=== PATIENT | female | born 1950 | race Caucasian/White ===

== ENCOUNTER 2018-05-25 09:54 | Outpatient (REF) | payer MEDICARE, MEDICAID, SELFPAY ==
[2018-05-25 23:34] LABS: Anion Gap 10.2 mmol/L (3-11); BUN 27 mg/dL (7-18); CO2 27.8 mmol/L (21.0-32.0); CREATININE 1.36 mg/dL (0.55-1.02); Calcium 9.2 mg/dL (8.5-10.1); Chloride 102 mmol/L (98-107); Cholesterol 224 mg/dL (50-200); Estimated GFR 38.67 (mL/min/1.73m2); Glucose 102 mg/dL (70-100); HDL Cholesterol 58 mg/dL (40-60); LDL CHOLESTEROL 138 mg/dL (<100); Potassium 4.4 mmol/L (3.5-5.1); Sodium 140 mmol/L (136-145); Triglyceride 169 mg/dL (30-150)
== END 2018-05-25 10:14 ==
LOC: NCHCN 09:54
PROVIDERS: PCP Specialist/Technologist Athletic Trainer; Visit Provider Specialist/Technologist Athletic Trainer
DX: I10 Essential (primary) hypertension (principal); E78.5 Hyperlipidemia, unspecified
CPT/HCPCS: 80048; 80061; 83721

== ENCOUNTER 2020-07-21 10:48 | Outpatient (REF) | payer MEDICARE, MEDICAID, SELFPAY ==
[2020-07-21 21:17] LABS: ALT 31 U/L (14-59); AST 24 U/L (15-37); Alkaline Phosphatase 77 U/L (46-116); Anion Gap 7.7 mmol/L (3-11); BUN 28 mg/dL (7-18); Bilirubin, Total 0.6 mg/dL (0.2-1.0); CO2 27.3 mmol/L (21.0-32.0); CREATININE 1.35 mg/dL (0.55-1.02); Calcium 9.1 mg/dL (8.5-10.1); Chloride 104 mmol/L (98-107); Estimated GFR 38.77 (mL/min/1.73m2); Glucose 99 mg/dL (74-106); Potassium 4.4 mmol/L (3.5-5.1); Sodium 139 mmol/L (136-145); Total Protein 7.7 g/dL (6.4-8.2)
[2020-07-21 21:35] LABS: Calculated LDL 134 mg/dL (<100); Cholesterol 227 mg/dL (<200); HDL Cholesterol 65 mg/dL (40-60); Triglyceride 143 mg/dL (<150)
== END 2020-07-21 11:08 ==
LOC: NCHCN 10:48
PROVIDERS: PCP Specialist/Technologist Athletic Trainer; Visit Provider Nurse Practitioner Family
DX: I10 Essential (primary) hypertension (principal); E78.5 Hyperlipidemia, unspecified
CPT/HCPCS: 80053; 80061

== ENCOUNTER 2020-11-12 07:24 | Emergency (ER) | payer MEDICARE, SELFPAY ==
[2020-11-12] VITALS (17 sets, daily range): BP systolic 147–175; BP diastolic 69–140; PULSE 71–89; RESP 10–23; TEMP 36.4–36.5; O2SAT 95–99
--- NOTE | 2020-11-12 07:15 | RT.EKG_ITS ---
APPROVED REPORT Exam: Resting ECG Patient Location: E HR:78 bpm ECG Measurements Heart Rate 78 AXIS PA 193 P 47 QRSd 73 QRS 46 QT 394 T 42 QTc 447 Conclusion Sinus rhythm...normal P axis, V-rate 60- 99
--- NOTE | 2020-11-12 08:33 | ED.GENADUL_ITS ---
Discharge Plan Disposition Patient Disposition: HOME Condition: Stable Discharge Details Clinical Impression: Vertigo Primary Care Provider: Gilbert Dove ED Provider: Chris Walker Home Meds and New Rx's Prescriptions: New meclizine 25 mg tablet 25 mg PO BID PRN (Reason: dizziness) Qty: 30 RF: 0 Continued atorvastatin 20 mg Tablet 20 mg PO QHS RF: 0 lisinopril-hydrochlorothiazide 10-12.5 mg Tablet 1 tab PO DAILY RF: 0 Discharge Instructions Instructions: Vertigo (ED) Additional Instructions: Please contact your primary care physician to arrange follow-up. If symptoms persist, you should be seen for additional diagnostic testing. Return to the ER immediately if for any worsening or new concerning symptoms. Stand Alone Forms: Physical Therapy Referral Referrals: Gilbert Dove [Primary Care Provider] - Discharge Data Discharge Date/Time-TO BE ENTERED AT DEPARTURE: 11/12/20 10:52 Medical Decision Making 70-year-old female here with vertigo. Symptoms and exam consistent with peripheral process. Lianet maneuver performed. Patient given meclizine 25 mg. Patient does note she has not been drinking as much fluid as usual and feels a bit dehydrated. I will give IV fluid bolus. Patient is hypertensive. She has a history of hypertension and did not take her morning medication as prescribed today. I will give her hydrochlorothiazide and lisinopril as prescribed. Labs to assess for electrolyte abnormality and renal function reviewed HPI General Mode of arrival: EMS . Date/Time Provider Initiated Documentation: 11/12/20 07:32 . Limitations to Documentation: no limitations . Information obtained by: patient . HPI Narrative: 70-year-old with history of hypertension and hyperlipidemia, presents with chief complaint of dizziness. P atient describes the dizziness as vertigo. Symptoms started this morning. Symptoms moderate to severe. Symptoms positional, worse standing moving around and improved when lying down and standing still. Symptoms have persisted although not as severe now. Patient notes she had similar episode remotely. She does note some recent sinus congestion and sensation of ear fullness bilaterally. Patient denies associated headache, visual change, nausea or vomiting, numbness or weakness. Related Data Home Medications Medication Instructions Recorded Confirmed atorvastatin 20 mg PO QHS 11/12/20 11/12/20 lisinopril-hydrochlorothiazide 1 tab PO DAILY 11/12/20 11/12/20 meclizine 25 mg PO BID PRN #30 tab 11/12/20 Previous Rx's Medication Instructions Recorded meclizine 25 mg PO BID PRN #30 tab 11/12/20 Allergies Allergy/AdvReac Type Severity Reaction Status Date / Time shellfish derived Allergy Hives Unverified 11/12/20 07:31 clarithromycin [From Biaxin] AdvReac Intermediate Nausea Unverified 11/12/20 07:31 General Stated Complaint: Dizzy/Sync MAHENDRA: 3 Review of Systems All systems reviewed & are unremarkable except as noted in HPI and below Constitutional Constitutional: Denies fever(s) Cardiovascular Cardiovascular: Denies chest pain PFSH Medical History (Updated 11/12/20 @ 10:08 by Chris Walker MD) Hypertension Social History Smoking/Tobacco Use Status: Former Tobacco Use Smoking risk assessment performed?: Yes Alcohol Intake: never Drug use: Never Substance use type: does not use Do you feel safe at home: Yes Do you feel safe in your relationship?: Yes Exam Const General: cooperative and no acute distress HENMT Head: normocephalic and atraumatic Mouth: moist mucous membranes Eyes Conjunctivae: normal conjunctivae Sclera: normal sclerae EOM: EOM intact bilaterally and nystagmus Neck Neck: trachea midline and supple Resp Auscultation: clear to auscultation bilaterally, no rales, no rhonchi and no wheezes Cardio Rate: regular rate and not tachycardic Rhythm: regular rhythm GI Palpation: soft, not firm, no guarding, no masses, not rigid and nontender Skin General skin exam: no rashes or lesions noted Neuro General: patient alert, patient awake, patient oriented x3, tone normal and CN's II-XI intact bilaterally (Aside from nystagmus) Cranial Nerves: PERRL, EOM intact bilaterally and nystagmus horizontal fast component to the left Cognition: normal cognition Speech: speech normal Motor: muscle tone normal throughout and strength 5/5 throughout Sensory Exam: no sensory deficits noted Coordination: [id number] test normal, mpgy-br-[id number] test normal, Romberg test normal and rapid alternating movement UE normal (Normal) Other: [place]-Hallpike, symptoms when lying to the right side; hints exam negative Extrem General: no edema Psych Appearance: grossly normal Mental Status: mental status grossly normal Speech and Movement: speech and movement normal Course Vital Signs Vital signs: Vital Signs Temperature 36.5 C 11/12/20 07:27 Pulse 79 11/12/20 07:27 Respiratory Rate 18 11/12/20 07:27 Blood Pressure 165/77 H 11/12/20 07:27 Pulse Oximetry 97 11/12/20 07:27 Temperature 36.5 C 11/12/20 07:27 Temperature Source Temporal Artery Scan 11/12/20 07:27 Pulse 79 11/12/20 07:27 Respiratory Rate 18 11/12/20 07:32 Respiratory Effort Non-Labored 11/12/20 07:32 Respiratory Depth Normal 11/12/20 07:32 Respiratory Pattern Normal 11/12/20 07:32 Blood Pressure 165/77 H 11/12/20 07:27 Blood Pressure Position Sitting 11/12/20 07:27 Pulse Oximetry 97 11/12/20 07:27 Oxygen Delivery Method Room Air 11/12/20 07:27 Oxygen Flow Rate 0 11/12/20 07:27 Pain Level 0 11/12/20 07:27
[2020-11-12] MEDS: hydroCHLOROthiazide 25 MG TAB 12.5 MG PO (09:05)
[2020-11-12] MEDS: Lisinopril 10 MG TAB PO (09:05)
[2020-11-12] MEDS: Lactated Ringers 500 ML 1000 ML IV (09:05)
[2020-11-12] MEDS: Meclizine 25 MG TAB PO (09:07)
[2020-11-12 09:09] LABS: Abs Immature Grans 0.03 10^3/uL (0.0-0.06); Absolute Basophil Count 0.04 10^3/uL (0.0-0.2); Absolute Eosinophil Count 0.06 10^3/uL (0.0-0.7); Absolute Lymphocyte Count 1.63 10^3/uL (1.2-3.4); Absolute Monocyte Count 0.58 10^3/uL (0.1-0.8); Absolute Neutrophil Count 6.73 10^3/uL (1.2-6.7); Basophils % 0.4; Eosinophils % 0.7; HCT 41.5 % (36.0-46.0); HGB 14.1 g/dL (11.2-15.7); Immature Grans % 0.3; MCH 30.5 pg (27.0-33.0); MCV 89.8 fL (80-95); MPV 9.2 fL (8.0-11.0); Monocytes % 6.4; Neutrophils % 74.2; Nucleated RBC 0 %; Platelet Count 247 10^3/uL (130-400); RBC 4.62 10^6/uL (3.93-5.22); RDW 12.7 % (11.7-14.6); RDW-SD 42.1 fL; WBC 9.07 10^3/uL (4.4-10.8)
[2020-11-12 09:25] LABS: ALT 35 U/L (14-59); AST 22 U/L (15-37); Albumin 3.7 g/dL (3.4-5.0); Alkaline Phosphatase 97 U/L (46-116); BUN 21 mg/dL (7-18); Bilirubin, Total 0.7 mg/dL (0.2-1.0); CREATININE 1.3 mg/dL (0.55-1.02); Calcium 9.6 mg/dL (8.5-10.1); Chloride 101 mmol/L (98-107); Estimated GFR 40.49 (mL/min/1.73m2); Glucose 113 mg/dL (74-106); Magnesium 1.8 mg/dL (1.8-2.4); Potassium 3.5 mmol/L (3.5-5.1); Sodium 138 mmol/L (136-145); Total Protein 7.9 g/dL (6.4-8.2)
[2020-11-12 09:28] LABS: Troponin I < 0.05 ng/mL (<0.06)
== END 2020-11-12 10:52 | disposition home or self-care (01) ==
PROVIDERS: Emergency Provider Student in an Organized Health Care Education/Training Program; PCP Specialist/Technologist Athletic Trainer
DX: R42 Dizziness and giddiness (principal); E86.0 Dehydration
CPT/HCPCS: 36415; 80053; 93005; 95992; 96360; 99284; 83735; 84484; 85025; 93010

== ENCOUNTER 2020-11-24 15:20 | Outpatient (REF) | payer MEDICARE, SELFPAY ==
[2020-11-25 15:52] LABS: HSV 1 DNA Result Negative (Negative); HSV 2 DNA Result Negative (Negative); Varicella Zoster DNA Result Positive (Negative)
== END 2020-11-24 15:21 | disposition home or self-care (01) ==
LOC: NCHCN 15:20
PROVIDERS: PCP Nurse Practitioner Family; Visit Provider Nurse Practitioner Family
DX: R21 Rash and other nonspecific skin eruption (principal); Z11.59 Encounter for screening for other viral diseases
CPT/HCPCS: 87529; 87798

== ENCOUNTER 2021-01-03 11:22 | Outpatient (REF) | payer MEDICARE, SELFPAY ==
[2021-01-03 15:53] LABS: Calculated LDL 101 mg/dL (<100); Cholesterol 184 mg/dL (<200); HDL Cholesterol 57 mg/dL (40-60); Triglyceride 134 mg/dL (<150)
== END 2021-01-03 11:23 | disposition home or self-care (01) ==
LOC: NCHCN 11:22
PROVIDERS: PCP Nurse Practitioner Family; Visit Provider Nurse Practitioner Family
DX: E78.5 Hyperlipidemia, unspecified (principal)
CPT/HCPCS: 80061

== ENCOUNTER 2021-04-06 16:28 | Outpatient (REF) | payer MEDICARE, SELFPAY ==
[2021-04-06 19:40] LABS: Anion Gap 8.9 mmol/L (3-11); BUN 34 mg/dL (7-18); CO2 27.1 mmol/L (21.0-32.0); CREATININE 1.5 mg/dL (0.55-1.02); Calcium 9.5 mg/dL (8.5-10.1); Chloride 105 mmol/L (98-107); Estimated GFR 34.23 (mL/min/1.73m2); Glucose 109 mg/dL (74-106); Potassium 3.9 mmol/L (3.5-5.1); Sodium 141 mmol/L (136-145)
== END 2021-04-06 16:29 | disposition home or self-care (01) ==
LOC: NCHCN 16:28
PROVIDERS: PCP Nurse Practitioner Family; Visit Provider Nurse Practitioner Family
DX: Z00.00 Encounter for general adult medical examination without abnormal findings (principal); I10 Essential (primary) hypertension
CPT/HCPCS: 80048

== ENCOUNTER 2021-04-23 06:27 | Day surgery (SDC) | payer MEDICARE, SELFPAY ==
[2021-04-23 06:37] VITALS: BP 171/71; PULSE 77; RESP 16; TEMP 36.6; O2SAT 99
[2021-04-23] MEDS: Tropicam./Phenyleph. (1/2.5%) 5 ML BTL OD ×3 (06:47→06:57)
--- NOTE | 2021-04-23 07:03 | W.ANESPRE ---
General Info Date of Service Date Performed: 04/23/21 Height: 5 ft 1 in Weight: 67.5 kg Body Mass Index (BMI): 28.0 Surgical Procedure: Operation Date: 04/23/21 07:40 Proposed Procedures Side Surgeon p Cataract Extraction with IOL Implant Right Manpreet Bowles MD Meds Allergies and Home Medications Allergies Allergy/AdvReac Type Severity Reaction Status Date / Time shellfish derived Allergy Severe Hives Unverified 04/19/21 13:46 clarithromycin [From Biaxin] AdvReac Intermediate Nausea Unverified 04/19/21 13:46 Home Medication Medication Instructions Recorded atorvastatin 20 mg PO QHS 11/12/20 amlodipine 2.5 mg PO DAILY 04/19/21 lisinopril 20 mg PO DAILY 04/19/21 Current Visit Medications: Current Medications Generic Name Dose Route Start Last Admin Trade Name Freq PRN Reason Stop Dose Admin Acetaminophen 1,000 mg 04/23/21 06:00 Acetaminophen 500 Mg Tab PO Q4H PRN PRN Miscellaneous Medication 0 ml 04/23/21 06:00 Prednisolone 1%, Moxifloxacin 0.5%, Nepafenac 0.1% 5ml Btl OD DIRECTED NILDA Miscellaneous Medication 0 ml 04/23/21 06:00 04/23/21 06:57 Tropicam./Phenyleph. (1/2.5%) 5 Ml Btl OD 1 drp DIRECTED NILDA Administration Tetracaine HCl 0 ml 04/23/21 06:00 Tetracaine 0.5% 4 Ml Btl OD DIRECTED NILDA PFSH Active Problems Active Problems: Problem Status Onset Code Posterior subcapsular age-related cataract, right eye H25.041 Nuclear sclerotic cataract of right eye H25.11 Vertigo R42 Medical History Medical History HLD (hyperlipidemia) Hypertension Tobacco Smoking/Tobacco Use Status: Former Tobacco Use Alcohol Alcohol Intake: never Substance Use Substance use: Never Substance use type: does not use Vital Signs and Lab Results Vital Signs Most Recent Vital Signs in EMR: Most Recent Vital Signs Temp Pulse Resp BP Pulse Ox 36.6 C 77 16 171/71 H 99 04/23/21 06:37 04/23/21 06:37 04/23/21 06:37 04/23/21 06:37 04/23/21 06:37 Lab Results Blood Type / Crossmatch: No Data to Display Complete Blood Count: No Data to Display Complete Metabolic Panel: Sodium Level 141 mmol/L (136-145) 04/06/21 13:25 04/06/21 Potassium Level 3.9 mmol/L (3.5-5.1) 04/06/21 13:25 04/06/21 Chloride Level 105 mmol/L (98-107) 04/06/21 13:25 04/06/21 Carbon Dioxide Level 27.1 mmol/L (21.0-32.0) 04/06/21 13:25 04/06/21 Blood Urea Nitrogen 34 mg/dL (7-18) H 04/06/21 13:25 04/06/21 Creatinine 1.5 mg/dL (0.55-1.02) H 04/06/21 13:25 04/06/21 Estimated GFR/1.73 m2 34.23 (mL/min/1.73m2) 04/06/21 13:25 04/06/21 Calcium Level 9.5 mg/dL (8.5-10.1) 04/06/21 13:25 04/06/21 Glucose Level 109 mg/dL (74-106) H 04/06/21 13:25 04/06/21 Liver Function Panel: No Data to Display Coagulation Panel: No Data to Display Cardiac Panel: No Data to Display Arterial Blood Gas: No Data to Display Venous Blood Gas: No Data to Display Pancreas Panel: No Data to Display Thyroid Panel: No Data to Display Infectious Disease: No Data to Display Blood Cultures: No Data to Display Toxicology Panel: No Data to Display Imaging and Studies Imaging and Studies EKG Summary: 10/2020: Conclusion Sinus rhythm...normal P axis, V-rate 60- 99 I have reviewed and I agree with the emergency room physician's ECG interpretation. Anesthesia Assessment and Plan Anesthesia History Personal History: No History of Anesthesia Complications Family History: No Family History of Anesthesia Complications Exercise Tolerance Exercise Tolerance: Metabolic Equivalents>4 Pertinent Negatives Pertinent Negatives: No Symptoms of GERD, No Major Cardiovascular Symptoms or Complaints and No Major Pulmonary Symptoms or Complaints Cardiac & Pulmonary Exam Cardiac Exam: Heart Murmur Present Pulmonary Exam: Clear Bilateral Breath Sounds Airway Exam Known Difficult Airway: No Mallampati Class: 1 Mouth Opening: Normal (> 3cm) Thyromental Distance: Greater than 3 cm Neck Range of Motion: Full ROM Neck Circumference: Normal Teeth Condition: Removable Dentures/Plates Upper ASA Classification ASA Score: ASA 2 Emergency Case?: No NPO Status NPO Status: NPO Clears >2 hours, Solids >8 hours Anesthesia Plan Resuscitation Status: Full Code Anesthesia Technique: MAC Anesthesia Airway Planned: Natural Airway Monitors Used: Standard Monitors
[2021-04-23 07:06] VITALS: BMI 28.0
[2021-04-23] MEDS: Lidocaine 2% Jelly 6 ML SYR (07:23)
[2021-04-23] MEDS: Povidone-Iodine Ophth 30 ML BTL (07:23)
[2021-04-23] MEDS: Tetracaine 0.5% 4 ML BTL OD (07:23)
[2021-04-23] MEDS: Trypan Blue 0.06% 0.5 ML SYR (07:31)
[2021-04-23] MEDS: Lidocaine 1% Pres-Free 5 ML VIAL (07:31)
[2021-04-23] MEDS: Balanced Salt Soln.-PLUS 500 ML BAG (07:36)
[2021-04-23] MEDS: Duovisc Viscoelastic System EACH 1 EACH (07:37)
--- NOTE | 2021-04-23 08:03 | W.PM.DSUDISC ---
Discharge Plan Disposition Patient Disposition: HOME Discharge Details Attending Provider: Manpreet Bowles Primary Care Provider: Sheela Taylor Home Meds and New Rx's Prescriptions: No Action atorvastatin 20 mg Tablet 20 mg PO QHS RF: 0 lisinopril 20 mg tablet 20 mg PO DAILY RF: 0 amlodipine 2.5 mg Tablet 2.5 mg PO DAILY RF: 0 Discharge Instructions Stand Alone Forms: Post-op Topical Cataract, Shirin Crenshaw (DSU) Discharge Orders Discharge Orders: Discharge Order (Routine); Ordered 04/23/21 Ordered By: Manpreet Bowles DS: Diagnosis Discharge Diagnosis (1) Posterior subcapsular age-related cataract, right eye: Status: Resolved (2) Nuclear sclerotic cataract of right eye: Status: Resolved
--- NOTE | 2021-04-23 08:04 | ROE_ITS ---
Date of service: 04/23/21 Time of Service: 08:04 Operative Note Operative Note DATE OF PROCEDURE: 04/23/21 PRE-OP DIAGNOSIS: Dense posterior subcapsular/cortical cataract, right eye Nuclear cataract, right eye POST-OP DIAGNOSIS: same PROCEDURE: Cataract extraction using phacoemulsification with intraocular lens implantation, right eye, using capsular staining with Vision Blue SURGEON: Manpreet Bowles ANESTHESIA TYPE: Local By Surgeon and MAC Refer to Anesthesia Record PATHOLOGY: none sent COMPLICATIONS: None Patient was transported to: same day Patient's condition: stable Implants: [employer]key / [employer] Tecnis [id number] Indications: Progressive visual loss due to cataract, right eye Procedure Description: CATARACT SURGERY OPERATIVE REPORT PREOPERATIVE DIAGNOSIS: 1. Dense posterior subcapsular/posterior polar cataract, right eye 2. Nuclear cataract, right eye 3. Poor red reflex secondary to #1 POSTOPERATIVE DIAGNOSIS: Same OPERATION: 1. Cataract extraction using phacoemulsification with posterior chamber intraocular lens implant, right eye. 2. Capsular staining with Vision Blue IOL: IOL [employer]/Model: Rickey & Rickey / [employer] Tecnis [id number] IOL Power: + 26.0 diopters IOL Serial Number: [id number] Optic Diameter: 6.0mm Haptic/Overall Diameter: 13.0mm PHACO INFO: Caleb RIB Softwareurion Vision System with OZil and Active [employer]uidics Cumulative Dispersed Energy (CDE): 11.07 seconds SURGEON: Manpreet Bowles MD, KATHERINE ANESTHESIA: Monitored Anesthesia Care (MAC), with local sub-tenon's anesthetic infiltration COMPLICATIONS: None SPECIMENS: None INDICATIONS FOR PROCEDURE: The patient is a 71-year-old lady who presented with complaints of progressive decreased vision in her right eye, fairly rapidly. She was noted to have a dense posterior subcapsular/posterior polar cataract of the right eye. The option of cataract surgery was offered to the patient and she wished to proceed. PROCEDURE: The correct surgical eye was identified and marked as the right eye and the pupil was dilated in the preoperative area using mydriatics and cycloplegics. The dilated pupil size was 7.0 mm. She elected to proceed without oral sedation. The patient was brought to the operating room where cardiopulmonary monitoring was instituted and surgical time-out was performed, confirming the correct operative eye and IOL power. Topical anesthesia was administered and ophthalmic povidone-iodine 5% was instilled into the conjunctival fornices. Lidocaine gel was applied to the cornea and the chandrakant-ocular area was prepped with Betadine 10% solution and draped in the usual sterile fashion for intraocular surgery, including an aperture drape. A Tegaderm transparent film dressing was cut in half and used to cover the lashes and lid margins. Care was taken to sequester the lashes and lid margins under the Tegaderm dressing. A lid speculum was placed between the lids of the operative eye and the Robert-Raymon operating microscope was maneuvered into position. Beny scissors were then used to make a conjunctival buttonhole approximately 6mm posterior to the limbus in the inferonasal quadrant. Blunt dissection was carried out to expose bare sclera, and a blunt-tipped sub-tenon?s anesthesia cannula was introduced and passed posteriorly along the globe where non- preserved plain lidocaine was injected into posterior sub-Tenon?s space. A sideport knife was used to make a paracentesis port inferotemporally. Intraocular phenylephrine/lidocaine was injected into the anterior chamber. Air was injected into the anterior chamber, followed by Vision Blue, which was painted over the anterior capsule and then irrigated out with BSS. The anterior chamber was filled with viscoelastic. A 2.4mm keratome knife was used to create a half-thickness groove at the limbus and then to construct a three-plane near-c lear corneal tunnel extending 2.0mm into clear cornea superiortemporally. A flap was raised on the anterior capsule and capsulorhexis forceps were used to complete a continuous curvilinear capsulorhexis of 5.0 mm. Balanced salt solution was then used to perform nuclear hydrodelineation only. . The lens nucleus was then disassembled and removed within the capsular bag and iris plane using phacoemulsification. Dispersive viscoelastic was injected into the anterior chamber prior to removing the phaco handpiece. Viscodissection of the epinucleus and cortex was then undertaken. The epinucleu s and cortex was then carefully peeled from the capsule. There was significant residual posterior subcapsular plaque diffusely on the posterior capsule. The posterior capsule appeared to be intact, but was not aggressively polished. There was a significant amount of residual posterior subcapsular plaque remaining, which will be left in place. The capsular bag was then inflated and the anterior chamber deepened with viscoelastic. The lens implant described above was inserted into the capsular bag using the [employer] [place] Injector. A Kuglen hook was used to dial the IOL into position. Residual viscoelastic was then removed first from posterior to the IOL, then from the anterior chamber using the I/A handpiece. The lens implant was noted to center nicely within the capsular bag. The incisions were stromally hydrated, and the anterior chamber was reformed using BSS. Then 0.5cc of moxifloxacin 1.0mg/ml were injected into the capsular bag and anterior chamber. The incisions were checked with a Weck spear and found to be secure. Several drops of ophthalmic povidone-iodine 5% were then applied to the eye followed by two drops of Imprimis combination prednisolone/moxifloxacin/nepafenac solution. The drapes were removed and a clear plastic protective eye shield was placed over the eye. The patient was then returned to Same Day Surgery in stable condition.
[2021-04-23 08:09] VITALS: BP 171/82; PULSE 69; RESP 16; TEMP 36.3; O2SAT 98
--- NOTE | 2021-04-23 08:18 | W.ANESPOSTOP ---
Postoperative Evaluation Date, Time and Location Date Performed: 04/23/21 Time Performed: 08:10 Patient Location: Day Surgery Unit Vital Signs Most Recent Imported Vital Signs: Most Recent Vital Signs Temp Pulse Resp BP Pulse Ox 36.3 C L 69 16 171/82 H 98 04/23/21 08:09 04/23/21 08:09 04/23/21 08:09 04/23/21 08:09 04/23/21 08:09 Pain Score Most Recent Pain Score: Most Recent Pain Score Pain Level 0 04/23/21 08:09 Assessment Mental Status: Awake (Alert & Oriented to Patient Baseline) Airway and Respiratory Function: Patent airway with normal (patient baseline) respiratory exam Cardiovascular Function: Hemodynamically Stable Hydration Status: Adequately Hydrated Nausea & Vomiting: No Nausea or Vomiting Pain: Pt. Denies Any Pain Peripheral Nerve Block: Patient did not receive a nerve block
== END 2021-04-23 08:24 | disposition home or self-care (01) ==
PROVIDERS: PCP Nurse Practitioner Family; Visit Provider Ophthalmology
PROC: (CPT 66984; principal; 2021-04-23 07:30)
DX: H25.041 Posterior subcapsular polar age-related cataract, right eye (principal)
CPT/HCPCS: 66984; V2632

== ENCOUNTER 2021-04-30 08:57 | Outpatient (REF) | payer MEDICARE, SELFPAY ==
[2021-04-30 15:51] LABS: Anion Gap 11.2 mmol/L (3-11); BUN 20 mg/dL (7-18); CO2 25.8 mmol/L (21.0-32.0); CREATININE 1.1 mg/dL (0.55-1.02); Calcium 9.1 mg/dL (8.5-10.1); Chloride 107 mmol/L (98-107); Estimated GFR 48.96 (mL/min/1.73m2); Glucose 99 mg/dL (74-106); Potassium 4.2 mmol/L (3.5-5.1); Sodium 144 mmol/L (136-145)
== END 2021-04-30 08:58 | disposition home or self-care (01) ==
LOC: NCHCN 08:57
PROVIDERS: PCP Nurse Practitioner Family; Visit Provider Nurse Practitioner Family
DX: I10 Essential (primary) hypertension (principal); R94.4 Abnormal results of kidney function studies
CPT/HCPCS: 80048

== ENCOUNTER 2021-05-02 02:32 | Outpatient (CLI) | payer MEDICARE, SELFPAY ==
[2021-05-02 10:48] LABS: Source Nasal/Nares
[2021-05-02 13:01] LABS: COVID-19 PCR Negative (Negative)
== END 2021-05-02 02:33 | disposition home or self-care (01) ==
PROVIDERS: PCP Nurse Practitioner Family; Visit Provider Ophthalmology
DX: Z20.822 Contact with and (suspected) exposure to COVID-19 (principal); Z01.818 Encounter for other preprocedural examination
CPT/HCPCS: 87635

== ENCOUNTER 2021-05-04 08:56 | Day surgery (SDC) | payer MEDICARE, SELFPAY ==
[2021-05-04 09:13] VITALS: BP 182/81; PULSE 74; RESP 16; TEMP 36.3; O2SAT 98
[2021-05-04] MEDS: Tropicam./Phenyleph. (1/2.5%) 5 ML BTL OS ×3 (09:18→09:35)
--- NOTE | 2021-05-04 10:05 | W.ANESPRE ---
General Info Date of Service Date Performed: 05/04/21 Height: 5 ft 1 in Weight: 67.5 kg Body Mass Index (BMI): 28.0 Surgical Procedure: Operation Date: 05/04/21 11:40 Proposed Procedures Side Surgeon p Cataract Extraction with IOL Implant Left Manpreet Bowles MD Meds Allergies and Home Medications Allergies Allergy/AdvReac Type Severity Reaction Status Date / Time shellfish derived Allergy Severe Hives Unverified 05/04/21 09:19 clarithromycin [From Biaxin] AdvReac Intermediate Nausea Unverified 05/04/21 09:19 Home Medication Medication Instructions Recorded atorvastatin 20 mg PO QHS 11/12/20 amlodipine 5 mg PO DAILY 04/19/21 lisinopril 20 mg PO DAILY 04/19/21 Current Visit Medications: Current Medications Generic Name Dose Route Start Last Admin Trade Name Freq PRN Reason Stop Dose Admin Acetaminophen 1,000 mg 05/04/21 06:00 Acetaminophen 500 Mg Tab PO Q4H PRN PRN Miscellaneous Medication 0 ml 05/04/21 06:00 Prednisolone 1%, Moxifloxacin 0.5%, Nepafenac 0.1% 5ml Btl OS DIRECTED NILDA Miscellaneous Medication 0 ml 05/04/21 06:00 05/04/21 09:35 Tropicam./Phenyleph. (1/2.5%) 5 Ml Btl OS 1 drp DIRECTED NILDA Administration Tetracaine HCl 0 ml 05/04/21 06:00 Tetracaine 0.5% 4 Ml Btl OS DIRECTED NILDA PFSH Active Problems Active Problems: Problem Status Onset Code Vertigo R42 Nuclear sclerotic cataract of right eye H25.11 Posterior subcapsular age-related cataract, right eye H25.041 Medical History Medical History HLD (hyperlipidemia) Hypertension Surgical History Surgical History (Updated 05/04/21 @ 09:19 by Lashaun Nunn) Hx of cataract surgery Tobacco Smoking/Tobacco Use Status: Former Tobacco Use Alcohol Alcohol Intake: never Substance Use Substance use: Never Substance use type: does not use Vital Signs and Lab Results Vital Signs Most Recent Vital Signs in EMR: Most Recent Vital Signs Temp Pulse Resp BP Pulse Ox 36.3 C L 74 16 182/81 H 98 05/04/21 09:13 05/04/21 09:13 05/04/21 09:13 05/04/21 09:13 05/04/21 09:13 Lab Results Blood Type / Crossmatch: No Data to Display Complete Blood Count: No Data to Display Complete Metabolic Panel: Sodium Level 144 mmol/L (136-145) 04/30/21 08:30 04/30/21 Potassium Level 4.2 mmol/L (3.5-5.1) 04/30/21 08:30 04/30/21 Chloride Level 107 mmol/L (98-107) 04/30/21 08:30 04/30/21 Carbon Dioxide Level 25.8 mmol/L (21.0-32.0) 04/30/21 08:30 04/30/21 Blood Urea Nitrogen 20 mg/dL (7-18) H 04/30/21 08:30 04/30/21 Creatinine 1.1 mg/dL (0.55-1.02) H 04/30/21 08:30 04/30/21 Estimated GFR/1.73 m2 48.96 (mL/min/1.73m2) 04/30/21 08:30 04/30/21 Calcium Level 9.1 mg/dL (8.5-10.1) 04/30/21 08:30 04/30/21 Glucose Level 99 mg/dL (74-106) 04/30/21 08:30 04/30/21 Liver Function Panel: No Data to Display Coagulation Panel: No Data to Display Cardiac Panel: No Data to Display Arterial Blood Gas: No Data to Display Venous Blood Gas: No Data to Display Pancreas Panel: No Data to Display Thyroid Panel: No Data to Display Infectious Disease: Coronavirus (COVID-19)(PCR) Negative (Negative) 05/02/21 09:18 05/02/21 Coronavirus 2019 Source Nasal/Nares 05/02/21 09:18 05/02/21 Blood Cultures: No Data to Display Toxicology Panel: No Data to Display Imaging and Studies Imaging and Studies EKG Summary: 10/2020: Conclusion Sinus rhythm...normal P axis, V-rate 60- 99 I have reviewed and I agree with the emergency room physician's ECG interpretation. Anesthesia Assessment and Plan Anesthesia History Personal History: No History of Anesthesia Complications Family History: No Family History of Anesthesia Complications Exercise Tolerance Exercise Tolerance: Metabolic Equivalents>4 Pertinent Negatives Pertinent Negatives: No Symptoms of GERD, No Major Cardiovascular Symptoms or Complaints, No Major Pulmonary Symptoms or Complaints and No History of CVA/TIA Cardiac & Pulmonary Exam Cardiac Exam: Normal S1/S2 Heart Sounds Pulmonary Exam: Clear Bilateral Breath Sounds Airway Exam Known Difficult Airway: No Mallampati Class: 1 Mouth Opening: Normal (> 3cm) Thyromental Distance: Greater than 3 cm Neck Range of Motion: Full ROM Neck Circumference: Normal Teeth Condition: Removable Dentures/Plates Upper ASA Classification ASA Score: ASA 2 Emergency Case?: No NPO Status NPO Status: NPO Clears >2 hours, Solids >8 hours Anesthesia Plan Resuscitation Status: Full Code Anesthesia Technique: MAC Anesthesia Airway Planned: Natural Airway Monitors Used: Standard Monitors
[2021-05-04 10:07] VITALS: BMI 28.0
[2021-05-04] MEDS: Tetracaine 0.5% 4 ML BTL OS (10:17)
[2021-05-04] MEDS: Duovisc Viscoelastic System EACH 1 EACH (10:21)
[2021-05-04] MEDS: Balanced Salt Soln.-PLUS 500 ML BAG (10:21)
[2021-05-04] MEDS: Lidocaine 2% Jelly 6 ML SYR (10:21)
[2021-05-04] MEDS: Lidocaine 1% Pres-Free 5 ML VIAL (10:21)
[2021-05-04] MEDS: Povidone-Iodine Ophth 30 ML BTL (10:24)
[2021-05-04 10:45] VITALS: BP 164/84; PULSE 75; RESP 18; TEMP 36.6; O2SAT 99
--- NOTE | 2021-05-04 10:49 | W.PM.OP ---
Date of service: 05/04/21 Time of Service: 10:51 Operative Note Operative Note DATE OF PROCEDURE: 05/04/21 PRE-OP DIAGNOSIS: Nuclear/posterior subcapsular cataract, left eye POST-OP DIAGNOSIS: same PROCEDURE: Cataract extraction using phacoemulsification with intraocular lens implant, left eye SURGEON: Manpreet Bowles ANESTHESIA TYPE: Local By Surgeon and MAC Refer to Anesthesia Record PATHOLOGY: none sent COMPLICATIONS: None Patient was transported to: same day Patient's condition: stable Implants: Rickey and Rickey / [employer] Tecnis [id number] Indications: Progressive decreased vision due to cataract, left eye, with poor red reflex Procedure Description: CATARACT SURGERY OPERATIVE REPORT PREOPERATIVE DIAGNOSIS: 1. Nuclear/posterior subcapsular cataract, left eye POSTOPERATIVE DIAGNOSIS: Same OPERATION: 1. Cataract extraction using phacoemulsification with posterior chamber intraocular lens implant, left eye. IOL: IOL Stock Drier Tender/Model: Rickey & Rickey / KIA Tecnis [id number] IOL Power: + 26.0 diopters IOL Serial Number: [id number] Optic Diameter: 6.0 mm Haptic/Overall Diameter: 13.0 mm PHACO INFO: Caleb Talentologyurion Vision System with OZil and Active Fluidics Cumulative Dispersed Energy (CDE): 4.87 seconds SURGEON: Manpreet Bowles MD, KATHERINE ANESTHESIA: Monitored A [facility] (MAC), with local sub-tenon's anesthetic infiltration COMPLICATIONS: None SPECIMENS: None INDICATIONS FOR PROCEDURE: The patient is a 71-year-old lady with history of dense posterior subcapsular/polar cataract of the right eye, and has undergone cataract surgery 2 weeks ago to resolve this. Postoperatively she has significant residual posterior subcapsular plaque, which will be lasered at a later date. She now presents for cataract surgery of the left eye with a less dense posterior subcapsular cataract. PROCEDURE: The correct surgical eye was identified and marked as the left eye and the pupil was dilated in the preoperative area using mydriatics and cycloplegics. The dilated pupil size was 7.0 mm. She elected to proceed without oral sedation. The patient was brought to the operating room where cardiopulmonary monitoring was instituted and surgical time-out was performed, confirming the correct operative eye and IOL power. Topical anesthesia was administered and ophthalmic povidone-iodine 5% was instilled into the conjunctival fornices. Lidocaine gel was applied to the cornea and the chandrakant-ocular area was prepped with Betadine 10% solution and draped in the usual sterile fashion for intraocular surgery, including an aperture drape. A Tegaderm transparent film dressing was cut in half and used to cover the lashes and lid margins. Care was taken to sequester the lashes and lid margins under the Tegaderm dressing. A lid speculum was placed between the lids of the operative eye and the Robert-Raymon operating microscope was maneuvered into position. Beny scissors were then used to make a conjunctival buttonhole approximately 6mm posterior to the limbus in the inferonasal quadrant. Blunt dissection was carried out to expose bare sclera, and a blunt-tipped sub-tenon?s anesthesia cannula was introduced and passed posteriorly along the globe where non-preserved plain lidocaine was injected into posterior sub-Tenon?s space. A sideport knife was used to make a paracentesis port superiorly/superiortemporally. Intraocular phenylephrine/lidocaine was injected int the anterior chamber.. The anterior chamber was filled with viscoelastic. A 2.4mm keratome knife was used to create a half-thickness groove at the limbus and then to construct a three-plane near-clear corneal tunnel extending 2.0mm into clear cornea at the 3:00 position. A flap was raised on the anterior capsule and capsulorhexis forceps were used to complete a continuous curvilinear capsulorhexis of 5.5 mm. Balanced salt solution was then used to perform cortical cleaving hydrodissection and nuclear hydrodelineation until the lens could be freely rotated within the capsular bag. The lens nucleus was then disassembled and removed within the capsular bag and iris plane using phacoemulsification. Residual cortical material was removed using the 45-degree angled silicone I/A tip with 0.3mm port. The posterior capsule was carefully polished to remove as much residual lens epithelial cells as safely possible. There was a moderate amount of posterior subcapsular plaque which could not be safely removed. In addition, given the questionable posterior polar nature of the cataract, aggressive polishing was not recommended. The capsular bag was then inflated and the anterior chamber deepened with viscoelastic. The lens implant described above was inserted into the capsular bag using the KIA [place] Injector. A Kuglen hook was used to dial the IOL into position. Residual viscoelastic was then removed first from posterior to the IOL, then from the anterior chamber using the I/A handpiece. The lens implant was noted to center nicely within the capsular bag. The incisions were stromally hydrated, and the anterior chamber was reformed using BSS. Then 0.5cc of moxifloxacin 1.0mg/ml were injected into the capsular bag and anterior chamber. The incisions were checked with a Weck spear and found to be secure. Several drops of ophthalmic povidone-iodine 5% were then applied to the eye followed by two drops of Imprimis combination prednisolone/moxifloxacin/nepafenac solution. The drapes were removed and a clear plastic protective eye shield was placed over the eye. The patient was then returned to Same Day Surgery in stable condition.
--- NOTE | 2021-05-04 10:49 | W.PM.DSUDISC ---
Discharge Plan Disposition Patient Disposition: HOME Condition: Good Discharge Details Attending Provider: Manpreet Bowles Primary Care Provider: Sheela Taylor Home Meds and New Rx's Prescriptions: No Action atorvastatin 20 mg Tablet 20 mg PO QHS RF: 0 lisinopril 20 mg tablet 20 mg PO DAILY RF: 0 amlodipine 2.5 mg Tablet 5 mg PO DAILY RF: 0 Discharge Instructions Stand Alone Forms: Post-op Topical Cataract, Shirin Crenshaw (DSU) Discharge Orders Discharge Orders: Discharge Order (Routine); Ordered 05/04/21 Ordered By: Manpreet Bowles DS: Diagnosis Discharge Diagnosis (1) Nuclear sclerotic cataract of left eye: Status: Resolved (2) Posterior subcapsular age-related cataract of left eye: Status: Resolved
--- NOTE | 2021-05-04 10:49 | W.ANESPOSTOP ---
Postoperative Evaluation Date, Time and Location Date Performed: 05/04/21 Time Performed: 10:49 Patient Location: Day Surgery Unit Vital Signs Most Recent Imported Vital Signs: Most Recent Vital Signs Temp Pulse Resp BP Pulse Ox 36.3 C L 74 16 182/81 H 98 05/04/21 09:13 05/04/21 09:13 05/04/21 09:13 05/04/21 09:13 05/04/21 09:13 Most Recent Manually Entered Vital Signs: Adult Blood Pressure: 164/84 Heart Rate: 75 Respirations: 18 Oxygen Saturation (%): 99 Temperature (C): 36.6 C Pain Score (0-10 Scale): 0 Pain Score Most Recent Pain Score: Most Recent Pain Score Pain Level 0 05/04/21 09:13 Assessment Mental Status: Awake (Alert & Oriented to Patient Baseline) Airway and Respiratory Function: Patent airway with normal (patient baseline) respiratory exam Cardiovascular Function: Hemodynamically Stable Hydration Status: Adequately Hydrated Nausea & Vomiting: No Nausea or Vomiting Pain: Pt. Denies Any Pain Peripheral Nerve Block: Patient did not receive a nerve block
[2021-05-04 10:50] VITALS: BP 164/84; PULSE 75; RESP 18; TEMPC 36.6; O2SAT 99
== END 2021-05-04 11:08 | disposition home or self-care (01) ==
PROVIDERS: PCP Nurse Practitioner Family; Visit Provider Ophthalmology
PROC: (CPT 66984; principal; 2021-05-04 11:30)
DX: H25.042 Posterior subcapsular polar age-related cataract, left eye (principal); I10 Essential (primary) hypertension; E78.5 Hyperlipidemia, unspecified
CPT/HCPCS: 66984; V2632

== ENCOUNTER 2021-08-21 15:22 | Outpatient (REF) | payer MEDICARE, SELFPAY ==
[2021-08-21 21:05] LABS: Bacteria Few HPF (Negative); C & S Indicated? C&S Done As Ordered; Crystals Negative HPF (Negative); Epithelial Cells Many HPF (Negative); Mucus Negative (Negative); RBC 0-2 HPF (0-2); WBC >50 HPF (0-5)
== END 2021-08-21 15:23 | disposition home or self-care (01) ==
LOC: NCHCN 15:22
PROVIDERS: PCP Nurse Practitioner Family; Visit Provider Nurse Practitioner Family
DX: N39.0 Urinary tract infection, site not specified (principal)
CPT/HCPCS: 81015; 87086

== ENCOUNTER 2022-01-11 00:45 | Outpatient (CLI) | payer MEDICARE, SELFPAY ==
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
== END 2022-01-11 01:05 ==
PROVIDERS: PCP Nurse Practitioner Family; Visit Provider Nurse Practitioner Family
DX: Z78.0 Asymptomatic menopausal state (principal); Z13.820 Encounter for screening for osteoporosis
CPT/HCPCS: 77080

== ENCOUNTER 2022-10-18 00:35 | Outpatient (CLI) | payer MEDICARE, SELFPAY ==
--- NOTE | 2022-10-18 | DI.US_ITS ---
Exam(s) US BREAST RT COMPLETE MG MAMMO DIAGNOSTIC BI EXAM: MG MAMMO DIAGNOSTIC BI CLINICAL HISTORY: DIAGNOSTIC, RT NIPPLE DISCHARGE,N64.52,RT BREAST SKIN DISCOMORT. COMPARISON: US US BREAST RT COMPLETE from 10/18/2022 Patient states mammogram more than 20 years ago. TECHNIQUE: Craniocaudal and mediolateral oblique Full Field Digital Mammography views of the both br easts with Computer Aided Diagnosis followed by Tomosynthesis and right breast ultrasound. FINDINGS: Mammography/Tomosynthesis: Masses/Architectural Distortion: None seen. Microcalcifications: No suspicious pleomorphic-type are seen. Skin Thickening/Nipple Retraction: None. Right breast US: Echotexture: Normal appearance of the glandular tissue. Shadowing: No suspicious foci. Cyst: None. Solid lesions: None seen. Ductal dilation: None. IMPRESSION: 1. No evidence of malignancy is noted. 2. Unless there is more urgent need, follow-up screening mammography is recommended, as per [employer] guidelines. Results were discussed with the patient after completion of the exam is. BI-RADS Category 1 - Negative Breast Density - Category B - Scattered areas of fibroglandular density A negative radiographic report should not delay biopsy if a dominant or clinically suspicious mass is present. Up to ten percent of cancers are not identified on mammography. A negative report may reinforce clinical impression. Adenosis and dense breasts may obscure an underlying neoplasm. False positive reports average 6 to 10%. Patient will receive a letter notifying them of these results.
== END 2022-10-18 00:55 ==
LOC: DI 00:35
PROVIDERS: PCP Nurse Practitioner Family; Visit Provider Nurse Practitioner Family
DX: N64.52 Nipple discharge (principal)
CPT/HCPCS: 76642; 77062; 77066; G0279

== ENCOUNTER 2022-12-12 15:14 | Outpatient (REF) | payer MEDICARE, SELFPAY ==
[2022-12-12 16:24] LABS: AST 32 U/L (15-37); Albumin 3.6 g/dL (3.4-5.0); Alkaline Phosphatase 116 U/L (46-116); Anion Gap 11.6 mmol/L (3-11); Bilirubin, Total 0.6 mg/dL (0.2-1.0); CO2 20.4 mmol/L (21.0-32.0); Chloride 106 mmol/L (98-107); Potassium 4.1 mmol/L (3.5-5.1); Sodium 138 mmol/L (136-145); Total Protein 7.9 g/dL (6.4-8.2)
[2022-12-12 16:28] LABS: ALT 33 U/L (14-59); Glucose 148 mg/dL (74-106)
[2022-12-12 16:29] LABS: CREATININE 1.3 mg/dL (0.55-1.02); Calculated LDL 84 mg/dL (<100); Cholesterol 174 mg/dL (<200); Estimated GFR 43.69 (mL/min/1.73m2); HDL Cholesterol 60 mg/dL (40-60); Triglyceride 153 mg/dL (<150)
[2022-12-12 16:47] LABS: BUN 20 mg/dL (7-18)
== END 2022-12-12 15:15 | disposition home or self-care (01) ==
LOC: NCHCN 15:14
PROVIDERS: PCP Nurse Practitioner Family; Visit Provider Nurse Practitioner Family
DX: I10 Essential (primary) hypertension (principal); E78.5 Hyperlipidemia, unspecified
CPT/HCPCS: 80053; 80061

== ENCOUNTER 2025-01-29 07:47 | Emergency (ER) | payer MEDICARE, SELFPAY ==
[2025-01-29 07:50] VITALS: BP 175/65; PULSE 75; RESP 16; TEMP 36.8; O2SAT 97
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
== END 2025-01-29 10:06 | disposition home or self-care (01) ==
PROVIDERS: Emergency Provider Emergency Medicine; PCP Nurse Practitioner Family
DX: S89.81XA Other specified injuries of right lower leg, initial encounter (principal); V18.0XXA Pedal cycle driver injured in noncollision transport accident in nontraffic accident, initial encounter
CPT/HCPCS: 29505; 73562; 99283

== ENCOUNTER → 2025-02-10 12:59 | Outpatient (BNVA) | payer MEDICARE, SELFPAY | PROVIDERS: PCP Nurse Practitioner Family; Referring Provider Nurse Practitioner Family; Visit Provider Physician Assistant | DX: S80.01XA Contusion of right knee, initial encounter (principal); M17.11 Unilateral primary osteoarthritis, right knee; V18.0XXA Pedal cycle driver injured in noncollision transport accident in nontraffic accident, initial encounter; Y93.55 Activity, bike riding | CPT/HCPCS: 99213 ==